=== PATIENT | female | born 1945 | race American Indian/Alaskan Native ===

== ENCOUNTER 2017-01-03 07:05 | Outpatient (CLI) | payer MEDICARE ==
--- NOTE | 2017-01-03 09:55 | Mammography Report ---
Bilateral mammogram: Compared to 12/05/15. CAD study utilized. Findings: The predominance of adipose tissue bilaterally. Benign vascular calcifications. 4 mm new circumscribed density upper mid left breast. No microcalcification. Impression: New circumscribed density upper mid left breast. Recommend spot mag and sonographic examination. BI-RADS CATEGORY: 0 = Needs additional imaging evaluation ACR BI-RADS MAMMOGRAPHIC CODES: 0 = Needs additional imaging evaluation; 1 = Negative; 2 = Benign; 3 = Probably benign; 4 = Suspicious; 5 = Malignant; 6 = Known biopsy-proven malignancy COMMENT: 1. Dense breast tissue, i.e., adenosis, fibrocystic changes, etc., may obscure an underlying neoplasm. 2. Approximately 10% of cancers are not detected with mammography. 3. A negative mammography report should not delay biopsy if a clinically suspicious mass is present. COMMENT: Patient follow-up letters are generated in [employer].
== END 2017-01-03 07:06 | disposition home or self-care (01) ==
LOC: MAMMO 07:05
PROVIDERS: ATTEND Internal Medicine
DX: Z12.31 Encounter for screening mammogram for malignant neoplasm of breast (principal); I10 Essential (primary) hypertension
CPT/HCPCS: 77067; G0202

== ENCOUNTER 2017-01-16 14:28 | Outpatient (CLI) | payer MEDICARE ==
--- NOTE | 2017-01-16 14:49 | Mammography Report ---
Spot compression mag of density upper posterior left breast: Findings: There is effacement noted of the density. No mass or microcalcification seen. Impression: Benign findings. Annual followup recommended. BI-RADS CATEGORY: 2 = Benign ACR BI-RADS MAMMOGRAPHIC CODES: 0 = Needs additional imaging evaluation; 1 = Negative; 2 = Benign; 3 = Probably benign; 4 = Suspicious; 5 = Malignant; 6 = Known biopsy-proven malignancy COMMENT: 1. Dense breast tissue, i.e., adenosis, fibrocystic changes, etc., may obscure an underlying neoplasm. 2. Approximately 10% of cancers are not detected with mammography. 3. A negative mammography report should not delay biopsy if a clinically suspicious mass is present.
== END 2017-01-16 14:29 | disposition home or self-care (01) ==
LOC: MAMMO 14:28
PROVIDERS: ATTEND Internal Medicine
DX: R92.8 Other abnormal and inconclusive findings on diagnostic imaging of breast (principal); I10 Essential (primary) hypertension
CPT/HCPCS: G0206-LT

== ENCOUNTER 2018-01-05 07:37 | Outpatient (CLI) | payer MEDICARE ==
--- NOTE | 2018-01-05 15:37 | Mammography Report ---
BILATERAL DIGITAL SCREENING MAMMOGRAM with CAD : 01/05/18 07:37:00 CLINICAL: Routine screening. COMPARISON:01/03/17 FINDINGS: The breasts are heterogeneously dense, which may obscure small masses. No mass, architectural distortion or suspicious calcifications. IMPRESSION: No mammographic evidence of malignancy. BI-RADS CATEGORY: 2 -- Benign RECOMMENDATION: Routine mammographic screening in one year. COMMENT: Patient follow-up letters are generated by our [employer] application.
== END 2018-01-05 07:38 | disposition home or self-care (01) ==
LOC: MAMMO 07:37
PROVIDERS: ATTEND Internal Medicine
DX: Z12.31 Encounter for screening mammogram for malignant neoplasm of breast (principal)
CPT/HCPCS: 77067

== ENCOUNTER 2019-02-15 13:06 | Outpatient (CLI) | payer MEDICARE ==
--- NOTE | 2019-02-15 16:33 | Mammography Report ---
DIGITAL SCREENING MAMMOGRAM WITH CAD, 02/15/2019 INDICATION: Routine screening mammography. TECHNIQUE: Digital bilateral 2D mammography was obtained in the craniocaudal and mediolateral obliq ue projections. This examination was interpreted with the benefit of Computer-Aided Detection analysi s. COMPARISON: 01/05/2018 FINDINGS: Breast Density: There are scattered areas of fibroglandular density. There is no evidence of dominant mass, suspicious calcifications or architectural distortion in eithe r breast. IMPRESSION: BI-RADS Category 1: Negative. No mammographic evidence of malignancy. Recommend routine screening m ammography in one year. A "normal" or negative report should not discourage follow up or biopsy of a clinically significant f inding. A written summary of these findings will be mailed to the patient. The patient will be entered into a mammography reporting system which will generate a reminder letter for the patient's next appointmen t at the appropriate interval. The [employer] recommends yearly mammograms starting at age 40 and continuing as l sarah as a woman is in good health. Breast MRI is recommended for women with an approximate 20-25% or greater lifetime risk of breast cancer, including women with a strong family history of breast or ova afsaneh cancer or who have been treated for Hodgkin's disease. Signer Name: Fletcher Zapata MD Signed: 02/15/2019 4:28 PM Workstation Name: [id number]
== END 2019-02-15 13:07 | disposition home or self-care (01) ==
LOC: MAMMO 13:06
PROVIDERS: ATTEND Nurse Practitioner
DX: Z12.31 Encounter for screening mammogram for malignant neoplasm of breast (principal); I10 Essential (primary) hypertension; K21.9 Gastro-esophageal reflux disease without esophagitis; Z90.710 Acquired absence of both cervix and uterus
CPT/HCPCS: 77067

== ENCOUNTER 2020-05-05 08:32 | Outpatient (CLI) | payer MEDICARE ==
--- NOTE | 2020-05-05 12:45 | Mammography Report ---
DIGITAL SCREENING MAMMOGRAM WITH CAD, 05/05/2020 INDICATION: Routine screening mammography. SCREENING MAMMOGRAM TECHNIQUE: Digital bilateral 2D mammography was obtained in the craniocaudal and mediolateral obliq ue projections. This examination was interpreted with the benefit of Computer-Aided Detection analysi s. COMPARISON: 02/15/2019 FINDINGS: Breast Density: There are scattered areas of fibroglandular density. There is no evidence of dominant mass, suspicious calcifications or architectural distortion in eithe r breast. Couple nodular densities are again noted and largely unchanged. IMPRESSION: Follow up recommendation: Routine yearly BI-RADS Category 2: Benign. A "normal" or negative report should not discourage follow up or biopsy of a clinically significant f inding. A written summary of these findings will be mailed to the patient. The patient will be entered into a mammography reporting system which will generate a reminder letter for the patient's next appointmen t at the appropriate interval. The [employer] recommends yearly mammograms starting at age 40 and continuing as l sarah as a woman is in good health. Breast MRI is recommended for women with an approximate 20-25% or greater lifetime risk of breast cancer, including women with a strong family history of breast or ova afsaneh cancer or who have been treated for Hodgkin's disease. Signer Name: Michele Aaron MD Signed: 05/05/2020 12:40 PM Workstation Name: [id number]
== END 2020-05-05 08:33 | disposition home or self-care (01) ==
LOC: MAMMO 08:32
PROVIDERS: ATTEND Internal Medicine
DX: Z12.31 Encounter for screening mammogram for malignant neoplasm of breast (principal)
CPT/HCPCS: 77067

== ENCOUNTER 2021-05-07 09:53 | Outpatient (CLI) | payer MEDICARE ==
--- NOTE | 2021-05-08 11:08 | Mammography Report ---
DIGITAL SCREENING MAMMOGRAM WITH CAD, 05/07/2021 CLINICAL INFORMATION / INDICATION: Routine screening mammography. SCREENING MAMMO Z12.3 TECHNIQUE: Digital bilateral 2D mammography was obtained in the craniocaudal and mediolateral obliqu e projections. This examination was interpreted with the benefit of Computer-Aided Detection analysis . COMPARISON: 05/05/2020 FINDINGS: Breast Density: There are scattered areas of fibroglandular density. No dominant mass, suspicious calcifications, or architectural distortion in either breast. IMPRESSION: No mammographic evidence of malignancy. Follow up recommendation: Routine yearly BI-RADS Category 1: Negative. A "normal" or negative report should not discourage follow up or biopsy of a clinically significant f inding. A written summary of these findings will be mailed to the patient. The patient will be entered into a mammography reporting system which will generate a reminder letter for the patient's next appointmen t at the appropriate interval. The [employer] recommends yearly mammograms starting at age 40 and continuing as l sarah as a woman is in good health. Breast MRI is recommended for women with an approximate 20-25% or greater lifetime risk of breast cancer, including women with a strong family history of breast or ova afsaneh cancer or who have been treated for Hodgkin's disease. Signer Name: Jameel Benson MD Signed: 05/08/2021 11:04 AM Workstation Name: [id number]
== END 2021-05-07 09:54 | disposition home or self-care (01) ==
LOC: SPVWC 09:53
PROVIDERS: ATTEND Internal Medicine
DX: Z12.31 Encounter for screening mammogram for malignant neoplasm of breast (principal)
CPT/HCPCS: 77067